=== PATIENT | female | born 1975 | race Caucasian/White ===

== ENCOUNTER 2017-06-07 08:34 | Inpatient (IN) | payer MEDICARE ==
[~2017-06-07] VITALS: Ht 165.1 cm; Wt 100.2 kg
[2017-06-07 12:00] VITALS: BP 103/62; PULSE 102; RESP 18; TEMP 100.3; O2SAT 97
[2017-06-07] MEDS: SODIUM CHLOR 0.9% 1000 ML INJ 1,000 ML IV SCH ×2 (15:09→21:41)
[2017-06-07] MEDS ORDERED: NALOXONE HCL 0.4 MG/ML AMP IV PUSH PRN (15:15)
[2017-06-07] MEDS ORDERED: BISACODYL 10 MG SUPP RECTAL PRN (15:15)
[2017-06-07] MEDS ORDERED: ONDANSETRON HCL 4 MG/2 ML VIAL IVP PRN (15:15)
[2017-06-07] MEDS ORDERED: SENNOSIDES 8.6 MG TAB PO PRN (15:15)
[2017-06-07] MEDS ORDERED: LACTULOSE SYRUP 20 GM/30 ML CUP PO PRN (15:15)
[2017-06-07] MEDS ORDERED: MAGNESIUM HYDROXIDE SUSP 30 ML CUP PO PRN (15:15)
[2017-06-07] MEDS ORDERED: SODIUM CHLORIDE 0.9% FLUSH 10 ML FLUSH IV FLUSH PRN (15:15)
[2017-06-07 16:00] VITALS: BP 119/68; PULSE 97; RESP 19; TEMP 100.4; O2SAT 98
[2017-06-07] MEDS: ACETAMINOPHEN/HYDROcodone 325 MG/5 MG TAB PO PRN (17:46)
[2017-06-07] MEDS: SODIUM CHLORIDE 0.9% FLUSH 10 ML FLUSH IV FLUSH SCH (19:42)
[2017-06-07 20:50] VITALS: BP 120/67; PULSE 102; RESP 18; TEMP 98.7; O2SAT 98
[2017-06-07 21:05] LABS: AMORPHOUS SEDIMENT, URINE RARE; BACTERIA, URINE OCC /hpf; BILIRUBIN, URINE NEG (NEG); BLOOD, URINE SMALL (NEG); GLUCOSE,URINE NEG (NEG); KETONE, URINE NEG (NEG); NITRITE,URINE NEG (NEG); SQUAMOUS EPITHELIAL CELL URINE 1 /hpf (0-5); URINE COLOR YELLOW (YELLW/STRAW); URINE LEUKOCYTE ESTERASE LARGE (NEG)
[2017-06-08] VITALS (7 sets, daily range): BP systolic 96–120; BP diastolic 53–73; PULSE 92–107; RESP 18–19; TEMP 96–101.9; O2SAT 97–99
--- NOTE | 2017-06-08 00:36 | HHI.HP ---
[facility] seen on 06/07/17 around 1500. H&P for 06/07/17. Late entry. Primary Care Physician Unknown Admission Diagnosis Diagnoses: (1) Nephrolithiasis Travel History International Travel<30 Days: No Contact w/Intl Traveler <30 Da: No History of Present Illness Patient seen and examined on 06/07/17 41 Y/O female who was told she had non obstructing kidney stone on the left about two months ago who presented at [facility] with complaints of severe left flank pain radiating to the groin. Workup in the emergency room there revealed a 6 mm UPJ stone. Urology Dr. Quach was contacted who agree to consult on the patient here at [facility]. On my evaluation, the patient reports a wave like severe left flank pain. She has had some chills but no nausea or vomiting. Records from the outside Hospital reviewed. Patient also had abnormal urinalysis and a WBC of 14.8 K. She also had hydronephrosis on the left. She denies dysuria or hematuria currently. Review of Systems Constitutional: COMPLAINS OF: Chills, DENIES: Fever Gastrointestinal: COMPLAINS OF: Abdominal pain Genitourinary: DENIES: Dysuria Except as stated in HPI: all other systems reviewed are Neg Past Family Social History Past Medical History Kidney stone Past Surgical History C section Tubal ligation Allergies: Coded Allergies: ibuprofen (Verified Allergy, Unknown, 06/07/17) Family History Reviewed and is non contributory Social History Smoke 1/2 PPD. Admits to occasional alcohol. Denies illicit drug use. Physical Exam Vital Signs Vital Signs Date Time Temp Pulse Resp B/P (MAP) Pulse Ox O2 Delivery O2 Flow Rate FiO2 06/08/17 00:10 99.6 106 18 96/53 (67) 97 06/07/17 20:50 98.7 102 18 120/67 (84) 98 06/07/17 16:00 100.4 97 19 119/68 (85) 98 06/07/17 12:00 100.3 102 18 103/62 (76) 97 Physical Exam GENERAL: This is a well-nourished, well-developed patient, in no apparent distress. SKIN: No rashes, ecchymoses or lesions. Cool and dry. HEAD: Atraumatic. Normocephalic. No temporal or scalp tenderness. EYES: Pupils equal round and reactive. Extraocular motions intact. No scleral icterus. No injection or drainage. ENT: Nose without bleeding, purulent drainage or septal hematoma. Throat without erythema, tonsillar hypertrophy or exudate. Uvula midline. Airway patent. NECK: Trachea midline. No JVD or lymphadenopathy. Supple, nontender, no meningeal signs. CARDIOVASCULAR: Regular rate and rhythm without murmurs, gallops, or rubs. RESPIRATORY: Clear to auscultation. Breath sounds equal bilaterally. No wheezes , rales, or rhonchi. GASTROINTESTINAL: Abdomen soft, tender to deep palpation over the left flank MUSCULOSKELETAL: Extremities without clubbing, cyanosis, or edema. No joint tenderness, effusion, or edema noted. No calf tenderness. Negative Homans sign bilaterally. NEUROLOGICAL: Awake and alert. Cranial nerves II through XII intact. Motor and sensory grossly within normal limits. Five out of 5 muscle strength in all muscle groups. Normal speech. Laboratory Laboratory Tests Test 06/07/17 19:30 Urine Color YELLOW Urine Turbidity CLEAR Urine pH 7.0 Urine Specific [place] 1.010 Urine Protein TRACE Urine Glucose (UA) NEG Urine Ketones NEG Urine Occult Blood SMALL Urine Nitrite NEG Urine Bilirubin NEG Urine Urobilinogen LESS THAN 2.0 Urine Leukocyte Esterase LARGE Urine RBC 3 Urine WBC 49 Urine Squamous Epithelial Cells 1 Urine Amorphous Sediment RARE Urine Bacteria OCC Microscopic Urinalysis Comment CULTURE INDICATED Date/Time Source Procedure Growth Status 06/07/17 19:30 Urine Clean Catch Urine Culture Pending Received Imaging CT scan from the outside Hospital reviewed, 6 mm UPJ stone and hydronephrosis on the left. Caprini VTE Risk Assessment Caprini VTE Risk Assessment: No/Low Risk (score <= 1) Caprini Risk Assessment Model Point Value = 1 Point Value = 2 Point Value = 3 Point Value = 5 Age 41-60 Minor surgery BMI > 25 kg/m2 Swollen legs Varicose veins or History of unexplained or recurrent spontaneous Oral contraceptives or hormone replacement Sepsis (< 1 month) Serious lung disease, including pneumonia (< 1 month) Abnormal pulmonary function Acute myocardial infarction Congestive heart failure (< 1 month) History of inflammatory bowel disease Medical patient at bed rest Age 61-74 Arthroscopic surgery Major open surgery (> 45 min) Laparoscopic surgery (> 45 min) Malignancy Confined to bed (> 72 hours) Immobilizing plaster cast Central venous access Age >= 75 History of VTE Family history of VTE Factor V Leiden Prothrombin [id number] Lupus anticoagulant Anticardiolipin antibodies Elevated serum homocysteine Heparin-induced thrombocytopenia Other congenital or acquired thrombophilia Stroke (< 1 month) Elective arthroplasty Hip, pelvis, or leg fracture Acute spinal cord injury (< 1 month) Prophylaxis Regimen Total Risk Factor Score Risk Level Prophylaxis Regimen 0-1 Low Early ambulation 2 Moderate Order ONE of the following: *Sequential Compression Device (SCD) *Heparin 5000 units SQ BID 3-4 Higher Order ONE of the following medications: *Heparin 5000 units SQ TID *Enoxaparin/Lovenox 40 mg SQ daily (WT < 150 kg, CrCl > 30 mL/min) *Enoxaparin/Lovenox 30 mg SQ daily (WT < 150 kg, CrCl > 10-29 mL/min) *Enoxaparin/Lovenox 30 mg SQ BID (WT < 150 kg, CrCl > 30 mL/min) AND/OR *Sequential Compression Device (SCD) 5 or more Highest Order ONE of the following medications: *Heparin 5000 units SQ TID (Preferred with Epidurals) *Enoxaparin/Lovenox 40 mg SQ daily (WT < 150 kg, CrCl > 30 mL/min) *Enoxaparin/Lovenox 30 mg SQ daily (WT < 150 kg, CrCl > 10-29 mL/min) *Enoxaparin/Lovenox 30 mg SQ BID (WT < 150 kg, CrCl > 30 mL/min) AND *Sequential Compression Device (SCD) Assessment and Plan Problem List: (1) Nephrolithiasis ICD Code: N20.0 - Calculus of kidney Plan: 6 mm UPJ stone. DW Urology Dr. Quach, continue supportive care for now. Possible intervention on Friday Continue IVF, pain control, strain urine. (2) Complicated UTI (urinary tract infection) ICD Code: N39.0 - Urinary tract infection, site not specified Plan: In the setting of kidney stone - Continue with Rocephin. Follow urine cultures. Physician Certification 2 Midnight Certification Type: Admission for Inpatient Services Order for Inpatient Services The services are ordered in accordance with Medicare regulations or non- Medicare payer requirements, as applicable. In the case of services not specified as inpatient-only, they are appropriately provided as inpatient services in accordance with the 2-midnight benchmark. Estimated LOS (days): 3 days is the estimated time the patient will need to remain in the hospital, assuming treatment plan goals are met and no additional complications. Post-Hospital Plan: Home Britany Morris MD Jun 08, 2017 00:36
[2017-06-08] MEDS: ACETAMINOPHEN 325 MG TAB PO PRN ×2 (04:45→19:43)
[2017-06-08 06:13] LABS: AUTOMATED NEUTROPHIL # 10.4 TH/MM3 (1.8-7.7); BASOPHIL % 0.3 % (0.0-2.0); EOSINOPHIL % 0.1 % (0.0-4.0); HEMATOCRIT 35.6 % (35.0-46.0); LYMPH % 7.6 % (9.0-44.0); LYMPHOCYTE # 0.9 TH/MM3 (1.0-4.8); MEAN CELL VOLUME 94.1 FL (80.0-100.0); MEAN CORPUSCULAR HEMOGLOBIN 31.7 PG (27.0-34.0); MEAN CORPUSCULAR HGB CONC 33.8 % (32.0-36.0); MEAN PLATELET VOLUME 10.2 FL (7.0-11.0); MONO % 6.4 % (0.0-8.0); MONOCYTE # 0.8 TH/MM3 (0-0.9); NEUT % 85.6 % (16.0-70.0); PLATELET COUNT 152 TH/MM3 (150-450); RED BLOOD COUNT 3.78 MIL/MM3 (4.00-5.30); RED CELL DISTRIBUTION WIDTH 13.6 % (11.6-17.2); WHITE BLOOD COUNT 12.2 TH/MM3 (4.0-11.0)
[2017-06-08 06:42] LABS: BICARBONATE 23.4 MEQ/L (21.0-32.0); CALCIUM 8.2 MG/DL (8.5-10.1); CREATININE 0.8 MG/DL (0.50-1.00)
--- NOTE | 2017-06-08 08:16 | HHI.PR ---
Subjective Remarks Patient reports pain is intermittent. [place] helping but makes her drowsy. Fever overnight. Did not pass any stones. Objective Vitals Vital Signs Date Time Temp Pulse Resp B/P (MAP) Pulse Ox O2 Delivery O2 Flow Rate FiO2 06/08/17 04:28 101.9 107 18 120/66 (84) 97 06/08/17 00:10 99.6 106 18 96/53 (67) 97 06/07/17 20:50 98.7 102 18 120/67 (84) 98 06/07/17 16:00 100.4 97 19 119/68 (85) 98 06/07/17 12:00 100.3 102 18 103/62 (76) 97 I/O 06/07/17 06/07/17 06/07/17 06/08/17 06/08/17 06/08/17 07:00 15:00 23:00 07:00 15:00 23:00 Intake Total 360 ml 1210 ml Output Total 400 ml Balance -40 ml 1210 ml Intake Oral 360 ml 360 ml IV Total 850 ml Output Urine Total 400 ml # Voids 2 2 # Bowel Movements 0 0 Result Diagram: 06/08/1751206/08/17512 Objective Remarks GENERAL: This is a well-nourished, well-developed patient, in no apparent distress. CARDIOVASCULAR: Normal rate and regular rhythm without murmurs, gallops, or rubs. RESPIRATORY: Good respiratory efforts. Breath sounds equal and clear to auscultation bilaterally. GASTROINTESTINAL: Abdomen soft, tender to deep palpation on the left lower quadrant. Normal active bowel sounds MUSCULOSKELETAL: Extremities without cyanosis, or edema. NEURO: Alert & Oriented x4 to person, place, time, situation. Moves all ext x4 PSYCH: Appropriate mood and affect. A/P Problem List: (1) Nephrolithiasis ICD Code: N20.0 - Calculus of kidney Plan: 6 mm UPJ stone. Urology Dr. Quach, continue supportive care for now. Possible intervention on Friday Continue IVF, increase rate to 125 cc/h, pain control, strain urine. (2) Complicated UTI (urinary tract infection) ICD Code: N39.0 - Urinary tract infection, site not specified Plan: In the setting of kidney stone - Continue with Rocephin. Follow urine cultures. Britany Morris MD Jun 08, 2017 08:16
[2017-06-08] MEDS ORDERED: MORPHINE SULFATE 2 MG/ML INJ IV PUSH PRN (08:45)
[2017-06-08] MEDS ORDERED: POTASSIUM CHLORIDE 10 MEQ CONTROLLED RELEASE TAB PO ONE (09:00)
[2017-06-08] MEDS: SODIUM CHLORIDE 0.9% FLUSH 10 ML FLUSH IV FLUSH SCH ×2 (09:00→19:42)
[2017-06-08] MEDS ORDERED: PNEUMOCOCCAL POLYVALENT INJ 25 MCG/0.5 ML SYR IM ONE (10:00)
[2017-06-08] MEDS ORDERED: INFLUENZA VIRUS VACCINE (QUADRIVALENT) 0.5 ML SYR IM ONE (10:00)
[2017-06-08] MEDS: SODIUM CHLOR 0.9% 1000 ML INJ 1,000 ML IV SCH ×3 (10:35→23:44)
[2017-06-08] MEDS: ACETAMINOPHEN/HYDROcodone 325 MG/5 MG TAB PO PRN ×2 (11:30→22:09)
--- NOTE | 2017-06-08 12:20 | PD.CONS ---
HPI Service Urology Consult Requested By Dr. Morris Reason for Consult Obstructing left renal calculus Primary Care Physician Unknown Diagnosis: (1) Nephrolithiasis ICD Code: N20.0 - Calculus of kidney (2) Complicated UTI (urinary tract infection) ICD Code: N39.0 - Urinary tract infection, site not specified History of Present Illness 41-year-old female with history of left nephrolithiasis diagnosed several months ago who was transferred to [facility] from [facility] in [place] for ongoing urologic care. The patient presented to [facility] with left flank pain and elevation of the white blood cell count. There was no urology coverage available at [facility] and the patient was just transferred to [place] for ongoing care. Patient was accepted to the medical service year at [facility] and a urology consult placed for recommendations. At the time of consultation the patient reported that her pain was adequately controlled. She did have a temperature spike earlier this morning. She denies undergoing any type of urologic procedures in the past. Presently denies dysuria or gross hematuria. Review of Systems Constitutional: COMPLAINS OF: Fever, Chills Cardiovascular: DENIES: Chest pain Gastrointestinal: COMPLAINS OF: Abdominal pain (left side) Genitourinary: DENIES: Hematuria, Dysuria Musculoskeletal: COMPLAINS OF: Back pain (left flank) Except as stated in HPI: all other systems reviewed are Neg Past Family Social History Past Medical History Left nephrolithiasis diagnosed several months ago Past Surgical History Status post section Status post bilateral tubal ligation Reported Medications Refer to EMR Allergies: Coded Allergies: ibuprofen (Verified Allergy, Unknown, 06/07/17) Active Ordered Medications Refer to EMR Family History Reviewed and noncontributory Social History Positive tobacco use of one half pack per day Occasional alcohol use Denies illicit drug abuse Physical Exam Vital Signs Date Time Temp Pulse Resp B/P (MAP) Pulse Ox O2 Delivery O2 Flow Rate FiO2 06/08/17 08:00 96.0 98 18 101/60 (74) 98 06/08/17 04:28 101.9 107 18 120/66 (84) 97 06/08/17 00:10 99.6 106 18 96/53 (67) 97 06/07/17 20:50 98.7 102 18 120/67 (84) 98 06/07/17 16:00 100.4 97 19 119/68 (85) 98 Physical Exam GENERAL: This is a well-nourished, well-developed patient, in no apparent distress. SKIN: No rashes, ecchymoses or lesions. Cool and dry. HEAD: Atraumatic. Normocephalic. No temporal or scalp tenderness. EYES: Pupils equal round and reactive. Extraocular motions intact. No scleral icterus. No injection or drainage. ENT: Nose without bleeding, purulent drainage or septal hematoma. Throat without erythema, tonsillar hypertrophy or exudate. Uvula midline. Airway patent. NECK: Trachea midline. No JVD or lymphadenopathy. Supple, nontender, no meningeal signs. CARDIOVASCULAR: Regular rate and rhythm without murmurs, gallops, or rubs. RESPIRATORY: Clear to auscultation. Breath sounds equal bilaterally. No wheezes , rales, or rhonchi. GASTROINTESTINAL: Abdomen soft, non-tender, nondistended. No hepato-splenomegaly , or palpable masses. No guarding. GENITOURINARY: MUSCULOSKELETAL: Extremities without clubbing, cyanosis, or edema. No joint tenderness, effusion, or edema noted. No calf tenderness. Negative Homans sign bilaterally. NEUROLOGICAL: Awake and alert. Cranial nerves II through XII intact. Motor and sensory grossly within normal limits. Five out of 5 muscle strength in all muscle groups. Normal speech. Lab results reviewed: Yes Laboratory Tests Test 06/07/17 19:30 06/08/17 05:13 Urine Color YELLOW Urine Turbidity CLEAR Urine pH 7.0 Urine Specific [place] 1.010 Urine Protein TRACE Urine Glucose (UA) NEG Urine Ketones NEG Urine Occult Blood SMALL Urine Nitrite NEG Urine Bilirubin NEG Urine Urobilinogen LESS THAN 2.0 Urine Leukocyte Esterase LARGE Urine RBC 3 Urine WBC 49 Urine Squamous Epithelial Cells 1 Urine Amorphous Sediment RARE Urine Bacteria OCC Microscopic Urinalysis Comment CULTURE INDICATED White Blood Count 12.2 Red Blood Count 3.78 Hemoglobin 12.0 Hematocrit 35.6 Mean Corpuscular Volume 94.1 Mean Corpuscular Hemoglobin 31.7 Mean Corpuscular Hemoglobin Concent 33.8 Red Cell Distribution Width 13.6 Platelet Count 152 Mean Platelet Volume 10.2 Neutrophils (%) (Auto) 85.6 Lymphocytes (%) (Auto) 7.6 Monocytes (%) (Auto) 6.4 Eosinophils (%) (Auto) 0.1 Basophils (%) (Auto) 0.3 Neutrophils # (Auto) 10.4 Lymphocytes # (Auto) 0.9 Monocytes # (Auto) 0.8 Eosinophils # (Auto) 0.0 Basophils # (Auto) 0.0 CBC Comment DIFF FINAL Differential Comment Blood Urea Nitrogen 7 Creatinine 0.80 Random Glucose 121 Calcium Level 8.2 Sodium Level 139 Potassium Level 3.1 Chloride Level 107 Carbon Dioxide Level 23.4 Anion Gap 9 Estimat Glomerular Filtration Rate 78 Date/Time Source Procedure Growth Status 06/07/17 19:30 Urine Clean Catch Urine Culture Pending Received Result Diagram: 06/08/17 0513 06/08/17 0513 Assessment and Plan Assessment and Plan Urologic impression: Obstructing left ureteropelvic junction calculus Plan: #1 continue with analgesic support #2 add antibiotics #3 KUB study #4 nothing by mouth after midnight #5 patient scheduled for cystoscopy, left retrograde pyelogram and left ureteral stent placement tomorrow. #6 anticipate discharge home soon after stent placed with outpatient shockwave lithotripsy. Andrei Quach MD Jun 08, 2017 12:20
[2017-06-08] MEDS: cefTRIAXone INJ 1,000 MG in SODIUM CHLORIDE 0.9% INJ 100 ML IV SCH (13:00)
--- NOTE | 2017-06-08 13:18 | RADRPT ---
EXAM DATE/TIME: 06/08/2017 13:21 [place] COMPARISON: No previous studies available for comparison. INDICATIONS : Evaluate for kidney stones. MEDICAL HISTORY : None. SURGICAL HISTORY : Hysterectomy. ENCOUNTER: Subsequent ACUITY: 2 days PAIN SCORE: 9/10 LOCATION: Abdomen. FINDINGS: There are multiple radiopaque densities overlying the expected regions of the kidneys consistent with renal calculi. There is a 12 mm radiopaque density overlying the medial aspect of the left kidney w hich may represent a pelvicalyceal or ureteral calculus. Clinical correlation is recommended. A lar ge gallstone is noted within the right upper quadrant. No bowel obstruction or ileus is noted. CONCLUSION: 1. Multiple radiopaque densities overlying the expected regions of the kidneys consistent with renal calculi. There is a 12 mm radiopaque density overlying the medial aspect of the left kidney raising the possibility of pelvicalyceal or possible ureteral calculus. Clinical correlation is recommended . 2. Gallstone. 3. No bowel obstruction or ileus. Primo Padilla MD on June 08, 2017 at 13:05 Board Certified Radiologist. This report was verified electronically.
[2017-06-09 00:25] VITALS: BP 114/66; PULSE 95; RESP 18; TEMP 98.2; O2SAT 97
[2017-06-09] MEDS ORDERED: INSULIN HUMAN REGULAR 1,000 UNITS/10 ML VIAL SQ PRN (01:00)
[2017-06-09] MEDS ORDERED: SODIUM CHLORID 0.9% 500 ML IV PRN (01:00)
[2017-06-09] MEDS ORDERED: POVIDONE IODINE 5% (ANTISEPSIS KIT) 4 APPLICATIONS EACH NARE PRN (01:00)
[2017-06-09] MEDS ORDERED: CHLORHEXIDINE GLUCONATE 2 % 1 PACK (2 CLOTHS) TOPICAL PRN (01:00)
[2017-06-09] MEDS ORDERED: LACTATED RINGER'S 1000 ML IV PRN (01:00)
[2017-06-09] MEDS ORDERED: METOPROLOL TARTRATE 25 MG TAB PO PRN (01:00)
[2017-06-09] MEDS: ACETAMINOPHEN/HYDROcodone 325 MG/5 MG TAB PO PRN ×2 (04:01→18:39)
[2017-06-09 04:08] VITALS: BP 115/70; PULSE 90; RESP 18; TEMP 98.8; O2SAT 97
[2017-06-09 04:57] LABS: HEMATOCRIT 34.3 % (35.0-46.0); HEMOGLOBIN 11.7 GM/DL (11.6-15.3); MEAN CELL VOLUME 94.6 FL (80.0-100.0); MEAN CORPUSCULAR HEMOGLOBIN 32.3 PG (27.0-34.0); MEAN CORPUSCULAR HGB CONC 34.1 % (32.0-36.0); PLATELET COUNT 137 TH/MM3 (150-450); RED BLOOD COUNT 3.62 MIL/MM3 (4.00-5.30); RED CELL DISTRIBUTION WIDTH 13.4 % (11.6-17.2); WHITE BLOOD COUNT 9.2 TH/MM3 (4.0-11.0)
[2017-06-09 05:30] LABS: BICARBONATE 21.6 MEQ/L (21.0-32.0); CREATININE 0.68 MG/DL (0.50-1.00)
[2017-06-09 08:00] VITALS: BP 116/67; PULSE 78; RESP 18; TEMP 97.8; O2SAT 98
[2017-06-09] MEDS: SODIUM CHLORIDE 0.9% FLUSH 10 ML FLUSH IV FLUSH SCH ×2 (09:00→22:04)
[2017-06-09] MEDS: SODIUM CHLOR 0.9% 1000 ML INJ 1,000 ML IV SCH ×3 (09:17→22:04)
--- NOTE | 2017-06-09 10:47 | HHI.PR ---
Subjective Remarks Follow-up for left-sided kidney stone. Patient is scheduled for cystoscopy today. Denies any fever or chills. She continues to have left lower quadrant abdominal pain. Objective Vitals Vital Signs Date Time Temp Pulse Resp B/P (MAP) Pulse Ox O2 Delivery O2 Flow Rate FiO2 06/09/17 08:00 97.8 78 18 116/67 (83) 98 06/09/17 04:08 98.8 90 18 115/70 (85) 97 06/09/17 00:25 98.2 95 18 114/66 (82) 97 06/08/17 21:05 100.8 06/08/17 20:30 101.0 97 18 107/69 (82) 98 06/08/17 16:00 96.2 92 18 110/73 (85) 99 06/08/17 12:00 100.6 103 19 114/69 (84) 98 I/O 06/08/17 06/08/17 06/08/17 06/09/17 06/09/17 06/09/17 07:00 15:00 23:00 07:00 15:00 23:00 Intake Total 1210 ml 360 ml 900 ml Output Total 500 ml 700 ml Balance 1210 ml -140 ml 200 ml Intake Oral 360 ml 360 ml 0 ml IV Total 850 ml 900 ml Output Urine Total 500 ml 700 ml # Voids 2 3 # Bowel Movements 0 1 0 1 Result Diagram: 06/09/17 0413 06/09/17 0413 Imaging Last Impressions Abdomen X-Ray 06/08/17 0000 Signed Impressions: Service Date/Time: Thursday, June 08, 2017 13:21 - CONCLUSION: 1. Multiple radiopaque densities overlying the expected regions of the kidneys consistent with renal calculi. There is a 12 mm radiopaque density overlying the medial aspect of the left kidney raising the possibility of pelvicalyceal or possible ureteral calculus. Clinical correlation is recommended. 2. Gallstone. 3. No bowel obstruction or ileus. Primo Padilla MD Objective Remarks GENERAL: Alert, oriented 3, NAD. SKIN: Warm and dry. HEAD: Normocephalic. EYES: No scleral icterus. No injection or drainage. NECK: Supple, trachea midline. No JVD or lymphadenopathy. CARDIOVASCULAR: Regular rate and rhythm without murmurs, gallops, or rubs. RESPIRATORY: Breath sounds equal bilaterally. No accessory muscle use. GASTROINTESTINAL: Abdomen soft, non-tender except for left lower quadrant, nondistended. MUSCULOSKELETAL: No cyanosis, or edema. BACK: Nontender without obvious deformity. No CVA tenderness. A/P Problem List: (1) Nephrolithiasis ICD Code: N20.0 - Calculus of kidney (2) Complicated UTI (urinary tract infection) ICD Code: N39.0 - Urinary tract infection, site not specified Assessment and Plan Ms. Grajeda is a 41 year old female who was admitted due to left kidney stone on 06/07/2017. Patient apparently was told that she had nonobstructing kidney stone on the left side about 2 months ago. Urology was consulted. Urology indicated need for cystoscopy. - Left-sided nephrolithiasis - Continue [place] when necessary, morphine when necessary for pain. - Cystoscopy pending today. - If cleared by urology, patient could potentially go home today. - Probable urinary tract infection - WBC improved from 12.2 to 9.2. - Currently on ceftriaxone 1 g every 24 hours. - After cystoscopy, we'll consider is continuing antibiotics. Full code, SCDs. Alice Dan DO Jun 09, 2017 10:47 am
[2017-06-09] MEDS ORDERED: ACETAMINOPHEN 1000 MG/100 ML 100 ML IV ONE (12:11)
[2017-06-09] MEDS: cefTRIAXone INJ 1,000 MG in SODIUM CHLORIDE 0.9% INJ 100 ML IV SCH (13:20)
--- NOTE | 2017-06-09 13:41 | PD.OP ---
Operative Report Date of Surgery: Jun 09, 2017 Preoperative Diagnosis: (1) Renal calculus, left Postoperative Diagnosis: (1) Cystitis glandularis (2) Renal calculus, left Procedure: Cystoscopy, left retrograde pyelogram and left ureteral stent placement Anesthesia: General Surgeon: Andrei Quach Co Founder & Ceo(s): None Operation and Findings: Indication for procedure: Case of a pleasant 41-year-old female with approximately 6 mm obstructing left ureteropelvic junction calculus who presents now for cystoscopy, left ventricle pyelogram and left ureteral stent placement. Operative procedure in detail: Patient was brought to the operating room suite and placed supine on the OR table. She was then placed in the general anesthesia. She was then repositioned in the dorsolithotomy position and prepped and draped in normal sterile fashion. After appropriate timeout was undertaken I proceeded with cystoscopic evaluation utilizing the rigid cystoscope with a 20 [place] sheath and 30 lens. Both right and left ureteral orifices were in correct anatomic position with clear reflux from the right and no reflux noted on the left. The bladder itself had diffuse changes consistent with cystitis glandularis. I next proceeded with utilizing a 6 [place] open- ended catheter and performed a left retrograde pyelogram. The left UPJ stone could be seen causing obstruction. I then passed a sensor 0.035 wire through the open-ended catheter and negotiated the wire beyond the stone and into the left renal pelvis. The open-ended catheter was then exchanged for a [place] 6 [place] by 24 cm length double-J stent. The stent was placed on the both cystoscopic and fluoroscopic guidance without difficulty. Once the stent was in proper position, the trailing string was removed. The bladder was drained of irrigant fluid and the cystoscope withdrawn. The patient tolerated the procedures without complications and was transferred to the PACU in satisfactory condition. Andrei Quach MD Jun 09, 2017 13:41
--- NOTE | 2017-06-09 13:41 | PD.OP ---
Operative Report Date of Surgery: Jun 09, 2017 Preoperative Diagnosis: (1) Renal calculus, left Postoperative Diagnosis: (1) Cystitis glandularis (2) Renal calculus, left Procedure: Cystoscopy, left retrograde pyelogram and left ureteral stent placement Anesthesia: General Surgeon: Andrei Quach Software Developer Intern(s): None Operation and Findings: Indication for procedure: Case of a pleasant 41-year-old female with approximately 6 mm obstructing left ureteropelvic junction calculus who presents now for cystoscopy, left ventricle pyelogram and left ureteral stent placement. Operative procedure in detail: Patient was brought to the operating room suite and placed supine on the OR table. She was then placed in the general anesthesia. She was then repositioned in the dorsolithotomy position and prepped and draped in normal sterile fashion. After appropriate timeout was undertaken I proceeded with cystoscopic evaluation utilizing the rigid cystoscope with a 20 [place] sheath and 30 lens. Both right and left ureteral orifices were in correct anatomic position with clear reflux from the right and no reflux noted on the left. The bladder itself had diffuse changes consistent with cystitis glandularis. I next proceeded with utilizing a 6 [place] open- ended catheter and performed a left retrograde pyelogram. The left UPJ stone could be seen causing obstruction. I then passed a sensor 0.035 wire through the open-ended catheter and negotiated the wire beyond the stone and into the left renal pelvis. The open-ended catheter was then exchanged for a [place] 6 [place] by 24 cm length double-J stent. The stent was placed on the both cystoscopic and fluoroscopic guidance without difficulty. Once the stent was in proper position, the trailing string was removed. The bladder was drained of irrigant fluid and the cystoscope withdrawn. The patient tolerated the procedures without complications and was transferred to the PACU in satisfactory condition. Andrei Quach MD Jun 09, 2017 13:41
[2017-06-09] MEDS ORDERED: DO NOT ADM ANY ANTICOAGULANT DRUGS PRN (13:46)
[2017-06-09] MEDS ORDERED: CEPH-459 PO (13:47)
[2017-06-09] MEDS ORDERED: TAMS5CAP PO (13:47)
[2017-06-09] MEDS ORDERED: PERC5TAB12 PO (13:47)
[2017-06-09] MEDS ORDERED: *RESP: ALBUTEROL 2.5 MG/3 ML NEB (PRN) PERIprocedural Use ONLY NEB ONE (13:50)
[2017-06-09] MEDS ORDERED: *ONDANSETRON 4 MG VIAL PERIprocedural Use ONLY ONE (14:33)
[2017-06-09 16:00] VITALS: BP 109/65; PULSE 80; RESP 17; TEMP 96.7; O2SAT 97
[2017-06-09 17:26] VITALS: O2SAT 95
[2017-06-09 20:45] VITALS: BP 118/76; PULSE 76; RESP 18; TEMP 96.8; O2SAT 99
[2017-06-10 00:48] VITALS: BP 109/62; PULSE 72; RESP 18; TEMP 98; O2SAT 97
[2017-06-10 07:34] VITALS: BP 119/83; PULSE 67; RESP 17; TEMP 98.7; O2SAT 99
[2017-06-10] MEDS: SODIUM CHLORIDE 0.9% FLUSH 10 ML FLUSH IV FLUSH SCH (09:00)
[2017-06-10] MEDS: ACETAMINOPHEN/HYDROcodone 325 MG/5 MG TAB PO PRN (09:06)
--- NOTE | 2017-06-11 00:23 | HHI.DS ---
Discharge Summary Admission Date Jun 07, 2017 at 10:55 Discharge Date: Jun 10, 2017 Admitting Diagnosis (1) Nephrolithiasis ICD Code: N20.0 - Calculus of kidney Diagnosis: Principal (2) Complicated UTI (urinary tract infection) ICD Code: N39.0 - Urinary tract infection, site not specified Procedures 06/09/2017 Cystoscopy, left retrograde pyelogram and left ureteral stent placement Brief History - From Admission Patient seen and examined on 06/07/17 41 Y/O female who was told she had non obstructing kidney stone on the left about two months ago who presented at [facility] with complaints of severe left flank pain radiating to the groin. Workup in the emergency room there revealed a 6 mm UPJ stone. Urology Dr. Quach was contacted who agree to consult on the patient here at [facility]. On my evaluation, the patient reports a wave like severe left flank pain. She has had some chills but no nausea or vomiting. Records from the outside Hospital reviewed. Patient also had abnormal urinalysis and a WBC of 14.8 K. She also had hydronephrosis on the left. She denies dysuria or hematuria currently. CBC/BMP: 06/09/17 0413 06/09/17 0413 Significant Findings Laboratory Tests Test 06/08/17 05:13 06/09/17 04:13 White Blood Count 12.2 TH/MM3 (4.0-11.0) Red Blood Count 3.78 MIL/MM3 (4.00-5.30) 3.62 MIL/MM3 (4.00-5.30) Neutrophils (%) (Auto) 85.6 % (16.0-70.0) Lymphocytes (%) (Auto) 7.6 % (9.0-44.0) Neutrophils # (Auto) 10.4 TH/MM3 (1.8-7.7) Lymphocytes # (Auto) 0.9 TH/MM3 (1.0-4.8) Random Glucose 121 MG/DL (74-106) 111 MG/DL (74-106) Calcium Level 8.2 MG/DL (8.5-10.1) 8.0 MG/DL (8.5-10.1) Potassium Level 3.1 MEQ/L (3.5-5.1) Estimat Glomerular Filtration Rate 78 ML/MIN (>89) Hematocrit 34.3 % (35.0-46.0) Platelet Count 137 TH/MM3 (150-450) Blood Urea Nitrogen 4 MG/DL (7-18) Chloride Level 108 MEQ/L (98-107) Imaging Last Impressions Abdomen X-Ray 06/08/17 0000 Signed Impressions: Service Date/Time: Thursday, June 08, 2017 13:21 - CONCLUSION: 1. Multiple radiopaque densities overlying the expected regions of the kidneys consistent with renal calculi. There is a 12 mm radiopaque density overlying the medial aspect of the left kidney raising the possibility of pelvicalyceal or possible ureteral calculus. Clinical correlation is recommended. 2. Gallstone. 3. No bowel obstruction or ileus. Primo Padilla MD PE at Discharge GENERAL: Alert, oriented 3, NAD. SKIN: Warm and dry. HEAD: Normocephalic. EYES: No scleral icterus. No injection or drainage. NECK: Supple, trachea midline. No JVD or lymphadenopathy. CARDIOVASCULAR: Regular rate and rhythm without murmurs, gallops, or rubs. RESPIRATORY: Breath sounds equal bilaterally. No accessory muscle use. GASTROINTESTINAL: Abdomen soft, non-tender except for left lower quadrant, nondistended. MUSCULOSKELETAL: No cyanosis, or edema. BACK: Nontender without obvious deformity. No CVA tenderness. Pt update on day of discharge Follow up for kidney stone. Patient is doing well. Underwent cystoscopy. Denies any chest pain, shortness of breath, fever or chills. Urology clear for discharge. Hospital Course Ms. Grajeda is a 41 year old female who was admitted due to left kidney stone on 06/07/2017. Patient apparently was told that she had nonobstructing kidney stone on the left side about 2 months ago. Urology was consulted. Urology indicated need for cystoscopy. - Left-sided nephrolithiasis - Continue [place] when necessary, morphine when necessary for pain. - s/p Cystoscopy, left retrograde pyelogram and left ureteral stent placement - cleared by urology for discharge. - Probable urinary tract infection - WBC improved from 12.2 to 9.2. - Currently on ceftriaxone 1 g every 24 hours. - Upon discharge, continue abx, pain medications and tamsulosin. Pt Condition on Discharge: Good Discharge Disposition: Discharge Home Discharge Time: <= 30 minutes Discharge Instructions DIET: Follow Instructions for: As Tolerated, No Restrictions Activities you can perform: Regular-No Restrictions Follow up Referrals: PCP Follow-up - 1 Week Urology - 10 Days New Medications: Cephalexin (Keflex) 250 Mg Cap 250 MG PO TID for Infection, #15 CAP 0 Refills Oxycodone-Acetaminophen (Percocet) 5-325 mg Tab 1-2 TAB PO Q6H PRN for PAIN, #30 TAB 0 Refills Tamsulosin (Flomax) 0.4 Mg Cap 0.4 MG PO HS for stent irritation, #30 CAP 1 Refill Alice Dan DO Jun 11, 2017 00:23
== END 2017-06-10 10:42 | disposition home or self-care (01) | DRG 694 ==
LOC: N06A 10:55
PROVIDERS: ADMIT Family Medicine; ATTEND Hospitalist
PROC: BT1F1ZZ Fluoroscopy of Left Kidney, Ureter and Bladder using Low Osmolar Contrast (ICD-10-PCS; 2017-06-09)
PROC: 0T778DZ Dilation of Left Ureter with Intraluminal Device, Via Natural or Artificial Opening Endoscopic (ICD-10-PCS; principal; 2017-06-09 08:00)
DX: N13.2 Hydronephrosis with renal and ureteral calculous obstruction (principal); N30.80 Other cystitis without hematuria; F17.210 Nicotine dependence, cigarettes, uncomplicated; Z23 Encounter for immunization; Z88.6 Allergy status to analgesic agent
CPT/HCPCS: 74000; 80048; 81001; 85025; 85027; 87086; 90471; 90472; 90686; 90732; 94664; G0008; G0009; J0131; J0696; J2270; J2405; J7030; J7613; Q2038